=== PATIENT | male | born 1995 | race Caucasian/White ===

== ENCOUNTER 2019-11-07 20:36 | Emergency (ER) | payer BC, MEDICAID ==
[~2019-11-07] VITALS: Ht 175.3 cm; Wt 60.9 kg
[2019-11-07] MEDS ORDERED: LIDOcaine 1% W/epiNEPHrine 1:200,000 10ml vial IJ ONE (21:25)
[2019-11-07] MEDS ORDERED: ibuprofen tablet 400 MG TABLET PO ONE (21:25)
[2019-11-07] MEDS ORDERED: DOXYCYCLINE 100MG CAPSULE PO STA (21:43)
[2019-11-07] MEDS ORDERED: bacitracin 15gm ointment TP ONE (22:05)
[2019-11-07] MEDS ORDERED: DOXY100C2 PO (22:11)
[2019-11-07 22:24] VITALS: BP 111/78
== END 2019-11-07 22:28 | disposition home or self-care (01) ==
LOC: EDBD 20:36 → ER 20:36
DX: S61.012A Laceration without foreign body of left thumb without damage to nail, initial encounter (principal); S51.811A Laceration without foreign body of right forearm, initial encounter; Z88.0 Allergy status to penicillin; Z79.899 Other long term (current) drug therapy; W54.0XXA Bitten by dog, initial encounter; Y93.89 Activity, other specified; Y92.89 Other specified places as the place of occurrence of the external cause; Y99.8 Other external cause status
CPT/HCPCS: 12001; 20610; 64450; 73090; 73130; 99284